=== PATIENT | female | born 1985 | race Caucasian/White ===

== ENCOUNTER 2018-09-08 05:11 | Inpatient (IN) | payer OTHER ==
[2018-09-08] MEDS ORDERED: LR 1,000 ML IV ONE (05:24)
[2018-09-08] MEDS ORDERED: DEXMEDETOMIDINE HCL 400 MCG in NS 100 ML IV SCH (06:00)
[2018-09-08] MEDS ORDERED: ACETAMINOPHEN 500 MG TAB PO ONE (06:07)
[2018-09-08] MEDS ORDERED: ceFAZolin 2 GM/DEXTROSE 100 ML IV ONE (06:07)
[2018-09-08] MEDS ORDERED: GADOBUTROL 10 ML VIAL IVP ONE (06:15)
[2018-09-08] MEDS ORDERED: PROPOFOL 200 MG/20 ML VIAL ONE (06:49)
[2018-09-08] MEDS ORDERED: fentaNYL 100 MCG/2 ML INJ ONE ×3 (06:49→11:22)
[2018-09-08] MEDS ORDERED: PROPOFOL/EMULSION 500 MG/50 ML BOTTLE IV ONE ×7 (06:49→09:54)
[2018-09-08] MEDS ORDERED: ROCURONIUM 50 MG/5 ML VIAL ONE ×3 (06:52→09:51)
[2018-09-08] MEDS ORDERED: DEXAMETHASONE 4 MG/ML VIAL ONE ×3 (06:54)
[2018-09-08] MEDS ORDERED: BACITRACIN ZINC 0.5 OZ OINTTUBE TP ONE (06:56)
[2018-09-08] MEDS ORDERED: EPINEPHrine 30 MG/30 ML MDV (0.1 MG/0.1 ML) ONE (06:57)
[2018-09-08] MEDS ORDERED: LIDO/EPI 2%** Not for Epidural 20 ML MDV ONE (06:57)
[2018-09-08] MEDS ORDERED: METHYLENE BLUE 0.5% 50 MG/10 ML AMP ONE (06:57)
[2018-09-08] MEDS ORDERED: THROMBIN (BOVINE) 5,000 UNIT VIAL TP ONE (06:57)
--- NOTE | 2018-09-08 07:31 | PDHPUP ---
History & Physical Update H&P update statement: This history and physical update is based on an assessment of the patient which was completed after admission or registration (within 24 hours), but prior to the surgery/procedure. H&P update: H&P reviewed & patient examined, no change in patient's condition since H&P completed
[2018-09-08] MEDS ORDERED: MIDAZOLAM 2 MG/2 ML VIAL ONE (07:32)
[2018-09-08] MEDS ORDERED: MIDAZOLAM 2 MG/2 ML VIAL IVP ONE (07:32)
[2018-09-08] MEDS ORDERED: SCOPOLAMINE HYDROBROMIDE 1 MG/3 DAYS PATCH TD ONE ×2 (07:32)
--- NOTE | 2018-09-08 07:42 | PDANEPAE ---
ANE Past Medical History - Cardiovascular History Hx Hypertension: No Hx Arrhythmias: No Hx Chest Pain: No Hx Coronary Artery / Peripheral Vascular Disease: No Hx CHF / Valvular Disease: No Hx Palpitations: No - Pulmonary History Hx COPD: No Hx Asthma/Reactive Airway Disease: No Hx Recent Upper Respiratory Infection: No Hx Oxygen in Use at Home: No Hx Sleep Apnea: No Sleep Apnea Screening Result - Last Documented: Positive Pulmonary History Comment: PRIOR POS FERNIE W/CPAP - RESOLVED W/NASAL SURGERY - Neurologic History Hx Cerebrovascular Accident: No Hx Seizures: No Hx Dementia: No Neurologic History Comment: MIGRAINES - Endocrine History Hx Diabetes: No - Renal History Hx Renal Disorders: Yes Renal History Comment: PAST KIDNEY INF - Liver History Hx Hepatic Disorders: No Hepatic History Comment: MARA - Neurological & Psychiatric Hx Hx Neurological and Psychiatric Disorders: Yes Neurological / Psychiatric History Comment: BIPOLAR. ANXIETY/DEPRESSION - Cancer History Hx Cancer: No - Congenital Disorder History Hx Congenital Disorders: No - GI History Hx Gastrointestinal Disorders: Yes Gastrointestinal History Comment: GERD - Other Health History Other Health History: NEG - Chronic Pain History Chronic Pain: Yes (NECK & SHOULDER, ABD PAIN UPPER R SIDE) - Surgical History Prior Surgeries: CHOLECYSTECTOMY. NASAL SURGERY ANE Review of Systems Review of Systems: - Exercise capacity METS (RN): 4 METS ANE Patient History - Allergies Allergies/Adverse Reactions: No Known Allergies Allergy (Unverified 09/02/18 17:04) - Home Medications Home Medications: Cholecalciferol Vit D3 [Vitamin D3 (*)] 1,000 units PO DAILY 09/02/18 [Last Taken 09/03/18] [place] Carbonate [[place] Carbonate Cap 300 mg (*)] 900 mg PO HS 09/02/18 [ Last Taken 09/07/18] Pantoprazole Sodium [Protonix 40mg (*)] 40 mg PO DAILY 09/02/18 [Last Taken 06/16 03:00] Propranolol HCl [Inderal 20mg (*)] 20 mg PO BID 09/02/18 [Last Taken 09/07/18] Propranolol HCl [Inderal 20mg (*)] 20 mg PO DAILY PRN 09/02/18 [Last Taken 09/07] Ranitidine HCl 300 mg PO HS 09/02/18 [Last Taken 09/07/18] buPROPion XL [Wellbutrin Xl] 450 mg PO DAILY 09/02/18 [Last Taken 09/07/18] lamoTRIgine [Lamictal] 200 mg PO BID 09/02/18 [Last Taken 09/07/18] - NPO status NPO Since - Liquids (Date): 09/08/18 NPO Since - Liquids (Time): 03:00 NPO Since - Solids (Date): 09/07/18 NPO Since - Solids (Time): 19:00 - Anes Hx Anes Hx: post operative nausea and vomiting - Smoking Hx Smoking Status: Former smoker - Family Anes Hx Family Hx Anesthesia Complications: NEG ANE Labs/Vital Signs - Vital Signs Blood Pressure: 117/70 Heart Rate: 75 Respiratory Rate: 16 O2 Sat (%): 94 Height: 167.64 cm Weight: 107.048 kg ANE Physical Exam - Airway Neck exam: FROM Mallampati Score: Class 3 Mouth exam: normal dental/mouth exam - Pulmonary Pulmonary: clear to auscultation - Cardiovascular Cardiovascular: regular rate and rhythym - ASA Status ASA Status: III ANE Anesthesia Plan Anesthesia Plan: general endotracheal anesthesia Lines/Monitors: arterial line Total IV Anesthesia: Yes
[2018-09-08] MEDS ORDERED: REMIFENTANIL HCL 1 MG VIAL ONE (07:43)
[2018-09-08] MEDS ORDERED: PETROLAT,WHT/MIN OIL/SOD CHL 3.5 GM OPHT.OINT ONE (08:33)
[2018-09-08] MEDS ORDERED: GLYCOPYRROLATE 0.2 MG/1 ML VIAL ONE ×4 (08:39→10:30)
[2018-09-08] MEDS ORDERED: LACTULOSE 20 GM/30 ML UDCUP PO PRN (09:00)
[2018-09-08] MEDS ORDERED: niCARdipine/NACL 200 ML IV PRN (09:00)
[2018-09-08] MEDS ORDERED: MAGNESIUM HYDROXIDE 30 ML UDCUP PO PRN (09:00)
[2018-09-08] MEDS ORDERED: BISACODYL 10 MG SUPP PR PRN (09:00)
[2018-09-08] MEDS ORDERED: ACETAMINOPHEN 325 MG TAB PO PRN (09:00)
[2018-09-08] MEDS ORDERED: FAMOTIDINE 20 MG TAB PO SCH (09:00)
[2018-09-08] MEDS ORDERED: POLYETHYLENE GLYCOL 3350 17 GM PKT PO PRN (09:00)
[2018-09-08] MEDS ORDERED: PROPRANOLOL HCL 20 MG TAB PO PRN (09:12)
--- NOTE | 2018-09-08 09:51 | PDMN ---
Medical Necessity Medical necessity: [facility] [place]: S640 hypophysectomy, nasal approach 1-2 days: INPT only list OP: craniotomy- transphenoidal w/ stealth for pituitary mass AUTH# [id number] APPROVED FOR CPT CODES 70475 AND 68520 TO BE DONE INPATIENT.
[2018-09-08] MEDS ORDERED: ONDANSETRON 4 MG/2 ML VIAL ONE (10:18)
[2018-09-08] MEDS ORDERED: HYDROCORTISONE 100 MG/2 ML VIAL ONE (10:26)
[2018-09-08] MEDS ORDERED: NEOSTIGMINE METHYLSULFATE 5 MG/5 ML SYR ONE (10:31)
[2018-09-08] MEDS ORDERED: PROMETHAZINE HCL 25 MG/ML INJ IVP PRN (10:32)
[2018-09-08] MEDS ORDERED: LABETALOL HCL 5 MG/ML 20 ML MDV IVP PRN (10:32)
[2018-09-08] MEDS ORDERED: LR 500 ML IV PRN (10:32)
[2018-09-08] MEDS ORDERED: ALBUTEROL 3 ML DEYVIAL IH PRN (10:32)
[2018-09-08] MEDS ORDERED: DIAZEPAM 5 MG/ML 1 ML SYR IVP PRN (10:32)
[2018-09-08] MEDS ORDERED: ONDANSETRON 4 MG/2 ML VIAL IVP PRN (10:32)
[2018-09-08] MEDS ORDERED: MEPERIDINE 25 MG/0.5 ML AMP IVP PRN (10:32)
[2018-09-08] MEDS ORDERED: METOCLOPRAMIDE 10 MG/2 ML VIAL IVP PRN (10:32)
[2018-09-08] MEDS ORDERED: HYDROmorphONE/DILAUDID 2 MG/ML INJ IVP PRN (10:32)
[2018-09-08] MEDS ORDERED: fentaNYL 100 MCG/2 ML INJ IVP PRN (10:32)
[2018-09-08] MEDS ORDERED: NALOXONE HCL 0.4 MG/ML INJ IVP PRN (10:32)
--- NOTE | 2018-09-08 10:54 | POSTOPPROG ---
Post Op Note Date of Operation: 09/08/18 Surgeon: Km Ortez Retail Advisor: Dr. Garcia- ENT Anesthesia: GET(General Endotracheal) Pre-op Diagnosis: Pituitary Mass Post-op Diagnosis: same Procedure: transphenoidal resection of pituitary mass, placement of nasal splint Inf/Abcess present in the surg proc area at time of surgery?: No Depth: Organ Space Complications: None observed SOAP Progress Note Assessment/Plan: Assessment: Plan: 09/08/18 10:54 S: Patient in PACU. Stable. Expected fullness and discomfort in nares. O: NAD, VSS Still groggy from anesthesia, waking up PERRL, EOMI CN II-XII grossly intact Nasal packing in place, no obvious drainage ALCALA X4 to command A: 33 yo female sp transphenoidal resection of pituitary mass P: -Admit to ICU -Neuro Checks -Postop Head CT in am -Close I/O monitoring- if UO >400 in 2 hours or >250 per hour RN to order Urine Spec Grav, and serum Na stat and call PA-C when they get the results -Encourage po intake- NO STRAW! -No drinking through a straw or blowing nose -SBP 90-140 -Hydrocortisone taper- will go home on 20mg qd until follow up with endo in 1-2 weeks -Nasal packing to be removed by Dr. Garcia on Saturday -Monitor nares for signs of CSF leak -DVT prophy ok on Saturday -PT/OT Objective: Vital Signs Temp Pulse Resp BP Pulse Ox 37.0 C 75 16 117/70 94 09/08/18 07:12 09/08/18 07:42 09/08/18 07:42 09/08/18 07:42 09/08/18 07:42
[2018-09-08] MEDS ORDERED: HYDROCORTISONE 10 MG TAB PO SCH (12:00)
--- NOTE | 2018-09-08 12:45 | POSTANESTH ---
Post Anesthetic Evaluation Cardiovascular Status: Normal, Stable Respiratory Status: Normal, Stable Level of Consciousness/Mental Status: Moderately Sleepy Pain Control: Adequate, Prn Tx Ordered Nausea/Vomiting Control: Adequate, Prn Tx Ordered Complications Possibly Related to Anesthesia: None Noted
[2018-09-08] MEDS: NS W/ 20 KCl/L 1,000 ML IV SCH ×2 (12:47→22:17)
[2018-09-08] MEDS: SENNOSIDES/DOCUSATE SODIUM TAB PO SCH ×2 (12:52→21:21)
[2018-09-08] MEDS: KETOROLAC 30 MG/1 ML SDV IVP PRN (13:00)
--- NOTE | 2018-09-08 13:17 | GOP ---
[f rep st] OPERATIVE REPORT DATE OF OPERATION: 09/08/2018 SURGEON: Km Ortez MD NEUROSURGEON: Km Ortez MD. ELECTRO TECH: Ludivina Garcia MD. ANESTHESIA: General endotracheal. PREOPERATIVE DIAGNOSIS: Benign pituitary tumor. POSTOPERATIVE DIAGNOSIS: Benign pituitary tumor. PROCEDURE PERFORMED: 1. Endoscopic transsphenoidal resection of pituitary tumor. 2. Use of stealth stereotactic navigation for volumetric gross total resection of tumor. FINDINGS: Successful tumor resection. SPECIMENS: Pituitary macroadenoma. ESTIMATED BLOOD LOSS: 30 cc. INDICATIONS: The patient is a 33-year-old woman who had some headaches and breast enlargement and pr esented with a pituitary mass. Ultimately, it was found that this was nonfunctional and her visual f ield testing was normal. However, given the size of this macroadenoma, we had recommended surgery. She presents electively today for this procedure. DESCRIPTION OF PROCEDURE: After informed consent was obtained from the patient, the patient was brou ght to the operating room and was placed in a supine position on the operating table. A formal time- out was performed, identifying the patient by name, medical record number, and date of . Preope rative antibiotics were given. The endotracheal tube was placed and general endotracheal anesthesia was smoothly induced. The initial portion of procedure was performed by Dr. Garcia for the approach, and this was dictated under a separate note. In brief, the face was sterilized and some epinephrine-soaked pledgets were placed in the nose. She then endoscopically obtained access through both nares and raised a partial nasoseptal flap on the left side. The sphenoid sinus was entered, and the sphenoid rostrum was drill ed down flat. The intersphenoid septum was removed. We were then able to visualize the bulging of t he left side of the sella which was consistent with the tumor. Our borders were checked using the navigation. We were able to identify the cavernous sinus on both sides. The carotid artery could be seen behind the bone pulsating on both sides in the cavernous sin us. There was a small rent in the bone in this area, and this was expanded using Kerrison punches. A large opening was opened in the sella down to the sellar floor and cephalad to the tuberculum sella . After this bone was removed, the micro Doppler was used to be sure that there was no vascular sign al behind, and the dura was then opened in a cruciate fashion using a sharp knife. This allowed egre ss of a large portion of the whitish pituitary mass, and biopsies were taken for permanent pathology. Then ring curettes and dissectors were used to dissect the tumor free, starting inferiorly and work ing more superiorly. The yellowish tissue of the normal gland was visualized superiorly and toward t he left. We continued dissecting away the tumor out toward both cavernous sinuses, and we continued removing tumor in this fashion. We were able to inspect under high-power magnification the posterior and lateral aspect of the sella, and no further tumor was visualized. The wound was then copiously irrigated using bacitracin irrigation. A small amount of FloSeal was pl aced in the sella to control the bleeding. There was a small CSF leak that was visualized, but it wa s very small and did not persist. At this point, there was no further bleeding. A small piece of Du raGen was then placed as an inlay graft beneath the dura into the sella. This was then covered with a free mucosal graft that was harvested from the right middle turbinate which had been resected. Thi s was covered with DuraSeal, and ultimately, the sphenoid sinus was then packed using Gelfoam. Dr. Magui dutton then replaced the nasoseptal flap which we did not need to use onto the nasal septum, and all the mucosa was returned to its normal position. Dr. Garcia then placed a splint on the left side an d Merocel packs on both sides for postoperative use in the mucosa. At this point, the posterior aspect of the pharynx was evacuated from the small amount of blood clot that was there and the face was washed. The patient was awakened in the operating room where she was then transferred to the PACU in stable condition. There were no operative complications. I was scr ubbed and present for the entirety of the procedure. All sponge and needle counts were correct at th e end of the case. FLUIDS AND URINE OUTPUT: Per the anesthesia record. /[id number]/MODL
[2018-09-08] MEDS ORDERED: HYDROCORTISONE 10 MG TAB PO ONE (21:00)
[2018-09-08] MEDS: PROPRANOLOL HCL 20 MG TAB PO SCH (21:20)
[2018-09-08] MEDS: lamoTRIgine 100 MG TAB PO SCH (21:20)
[2018-09-08] MEDS: FAMOTIDINE 20 MG TAB PO SCH (21:20)
[2018-09-08] MEDS: LITHIUM CARBONATE 300 MG CAP PO SCH (22:50)
[2018-09-09] MEDS ORDERED: DESMOPRESSIN ACETATE 30 MCG in NS 50 ML IV ONE (01:00)
[2018-09-09] MEDS ORDERED: DESMOPRESSIN ACETATE 1 MCG in NS 50 ML IV ONE (01:15)
[2018-09-09] MEDS: OXYCODONE/APAP 5/325 TAB PO PRN ×4 (07:40→23:19)
[2018-09-09] MEDS: KETOROLAC 30 MG/1 ML SDV IVP PRN ×3 (07:42→20:45)
[2018-09-09] MEDS: buPROPion XL 150 MG TAB PO SCH (08:34)
[2018-09-09] MEDS: HYDROCORTISONE 10 MG TAB PO SCH ×2 (08:35→20:46)
[2018-09-09] MEDS: SENNOSIDES/DOCUSATE SODIUM TAB PO SCH ×2 (08:36→20:45)
[2018-09-09] MEDS: PROPRANOLOL HCL 20 MG TAB PO SCH ×2 (08:37→20:42)
[2018-09-09] MEDS: lamoTRIgine 100 MG TAB PO SCH ×2 (08:39→20:42)
[2018-09-09] MEDS: PANTOPRAZOLE SODIUM 40 MG TAB PO SCH (08:39)
--- NOTE | 2018-09-09 09:38 | NEUSURGPN ---
Assessment/Plan: A: 33 yo female sp transphenoidal resection of pituitary mass POD1 P: -Postop Head CT demonstrates post operative findings with no acute hemorrhage -Close I/O monitoring- if UO >400 in 2 hours or >250 per hour RN to order Urine Spec Grav, and serum Na stat and call PAJenniferC when they get the results -Encourage po intake- No drinking through a straw or blowing nose -SBP 90-140 -Hydrocortisone taper- will go home on 20mg qd until follow up with endo in 1-2 weeks -Nasal packing to be removed by Dr. Garcia on Saturday -Monitor nares for signs of CSF leak -DVT prophy ok on Saturday -PT/OT -Continue ICU level of care given need for DDAVP over night. Continue Loco, UOP has improved this morning, will continue to monitor Subjective: Headache improved with Toradol. Mucous like discharge from nose Objective: NAD, PERRL, EOMI CN II-XII grossly intact blood mucosa drainage ALCALA X4 Catheter Insertion Date: 09/08/18 - Physician Patient Seen by : Neelima Neurosurgery Physical Exam - Vitals, I&O, Labs I and O 09/08/18 09/09/18 09/10/18 05:59 05:59 05:59 Intake Total 2981 Output Total 4145 60 Balance -1164 -60 Weight 107.048 kg Intake: Oral (ml) 550 IV Intake (ml) 1100 IV Infused (ml) 1331 NS W/ 20 KCl/L 1,000 ml @ 1281 100 mls/hr IV CONT LEILA Rx#:[id number] ceFAZolin 1 GM/DEXTROSE 50 50 ml @ 200 mls/hr IV Q8HRS LEILA Rx#:[id number] Output: Urine (ml) 4115 60 Catheter 4115 60 Estimated Blood Loss (ml) 30 Other: Output Comment Catheter notified Vital Signs Temp Pulse Resp BP Pulse Ox 36.6 C 89 20 115/58 L 99 09/08/18 23:55 09/09/18 08:37 09/09/18 08:00 09/09/18 08:37 09/09/18 08:00 Laboratory Results 09/09/18 06:15 ICD10 Worksheet Patient Problems: Problems Problem Status Onset Pituitary adenoma Acute - ICD10 Problem Qualifiers (1) Pituitary adenoma
--- NOTE | 2018-09-09 11:48 | ASMTCMCOM ---
CM Note CM Note Notes: Patient is POD #1 transphenoidal resection of pituitary mass. She will have nasal packing removed tomorrow. She is normally indepdent and lives with her . PT/OT/TELEPHONE INSTRUMENT SUPERVISOR have been ordered. Case Management will follow. Current CM Discharge plan: TBD Date Signed: 09/09/2018 11:48 AM Electronically Signed By:April Farrell RN
[2018-09-09] MEDS: AMOXICILLIN/CLAVULANATE POT 875/125 MG TAB PO SCH (20:45)
[2018-09-09] MEDS: FAMOTIDINE 20 MG TAB PO SCH (20:45)
[2018-09-09] MEDS: LITHIUM CARBONATE 300 MG CAP PO SCH (20:46)
[2018-09-10] MEDS: KETOROLAC 30 MG/1 ML SDV IVP PRN ×3 (05:28→21:57)
--- NOTE | 2018-09-10 07:59 | SOAPPROG ---
SOAP Progress Note Assessment/Plan: Assessment: 33 yo F pod #2 transphenoidal resection of pituitary adenoma Plan: neuro: stable and doing well overall :) watch for central DI, keep oh for now PT/OT scd/terrence/lovenox for dvt prophylaxis nasal packing still in, on augmentin please call with neuro changes discussed with Dr Ortez 09/10/18 07:56 Subjective: + headache, nausea without emesis, no nasal drainage. Objective: Vital Signs Temp Pulse Resp BP Pulse Ox 36.8 C 83 13 120/63 98 09/10/18 04:00 09/10/18 06:00 09/10/18 06:00 09/10/18 06:00 09/10/18 06:00 Laboratory Results 09/10/18 05:20 09/09/18 09/10/18 09/11/18 05:59 05:59 05:59 Intake Total 2981 2450 Output Total 2646 8780 Balance -1164 -630 AAOX4, +FC PERRL, EOMI, no facial droop CRISTINA x 4 + light touch ICD10 Worksheet Patient Problems: Problems Problem Status Onset Pituitary adenoma Acute
[2018-09-10] MEDS: lamoTRIgine 100 MG TAB PO SCH ×2 (08:53→20:29)
[2018-09-10] MEDS: AMOXICILLIN/CLAVULANATE POT 875/125 MG TAB PO SCH ×2 (08:53→20:29)
[2018-09-10] MEDS: HYDROCORTISONE 10 MG TAB PO SCH (08:53)
[2018-09-10] MEDS: buPROPion XL 150 MG TAB PO SCH (08:53)
[2018-09-10] MEDS: PANTOPRAZOLE SODIUM 40 MG TAB PO SCH (08:54)
[2018-09-10] MEDS: PROPRANOLOL HCL 20 MG TAB PO SCH ×2 (08:54→10:41)
[2018-09-10] MEDS: OXYCODONE/APAP 5/325 TAB PO PRN ×3 (08:54→23:54)
[2018-09-10] MEDS: SENNOSIDES/DOCUSATE SODIUM TAB PO SCH ×2 (08:55→20:29)
[2018-09-10] MEDS: ENOXAPARIN 40 MG/0.4 ML SYR SC SCH (08:55)
[2018-09-10] MEDS ORDERED: ONDANSETRON 4 MG/2 ML VIAL IVP PRN (11:56)
[2018-09-10] MEDS ORDERED: SCOPOLAMINE HYDROBROMIDE 1 MG/3 DAYS PATCH TD ONE (12:00)
[2018-09-10] MEDS ORDERED: DESMOPRESSIN ACETATE 1 MCG in NS 50 ML IV ONE (12:00)
--- NOTE | 2018-09-10 12:45 | GOP ---
[f rep st] OPERATIVE REPORT DATE OF OPERATION: 09/08/2018 SURGEON: Ludivina Garcia MD CO-SURGEON: Km Ortez MD. COMPLICATIONS: None. ANESTHESIA: General. PREOPERATIVE DIAGNOSIS: Pituitary mass with extra sellar extension. POSTOPERATIVE DIAGNOSIS: Pituitary mass with extra sellar extension. PROCEDURE PERFORMED: 1. Endoscopic transnasal transsphenoidal resection of pituitary mass. 2. Repair of low-flow cerebrospinal fluid leak. 3. Right middle turbinate excision. 4. Stereotactic volumetric navigation of the paranasal sinuses and extradural skull base utilizing the [email or web address] system. FINDINGS: The patient was found to have overall pretty normal nasal anatomy. The middle turbinate on the right was removed for better access for Dr. Ortez. She did have a small intraoperative low-flow CSF leak from the right. This was patched and was not draining postoperatively. ESTIMATED BLOOD LOSS: Minimal. INDICATIONS: The patient is a very pleasant woman, who has a history of some dizziness, as well as headaches. An MRI was done, which showed a pituitary lesion with some minimal extra sellar extension. She was seen by Endocrinology as well as Neurosurgery, and they both felt that surgery would be indicated. I was asked for assistance with the approach. DESCRIPTION OF PROCEDURE: The patient was first seen in the preoperative area where informed consent was obtained. She was then brought back to the operating room where Anesthesia sedated and intubated her. The bed was turned 180 degrees. She was prepped and draped in a sterile fashion. The stealth- guided head piece was placed, and then she was registered and confirmed to be tracking accurately. Once this was done, a 0-degree scope was used to evaluate the nasal cavity on both sides, and she overall had a fairly midline septum, although she was slightly crowded posteriorly. At this point, the middle turbinate on the left was lateralized, and then an epinephrine-soaked pledget was placed within the sphenoethmoidal recess region and then on the right. The right middle turbinate was removed using a curved turbinate scissor, making an incision in the crotch of the middle turbinate, then moving posteriorly in the coronal plane, and then truncating it inferiorly. This was removed and set aside in case of need for mucosal graft. I then used a 0-degree scope and a [place] to gently fracture some of the posterior ethmoid cells that were anterior to the face of the sphenoid. The microdebrider was used to clean this area up. The inferior one-third of the superior turbinate was removed on this side. An epinephrine-soaked pledget was placed. I then turned my attention to the left side. I removed the inferior one-third of the superior turbinate with a combination of hand instruments, as well as a microdebrider. I was able to see the natural os of the sphenoid, and this was gently opened superiorly and medially. Once this was opened slightly, we had previously discussed raising a nasoseptal flap for possible need. At this point, about 6 mL of 1% lidocaine with 1:200,000 epinephrine was injected into the septum, as well as the face of the sphenoid. Once this had sufficient time to act, electrocautery on a low setting and an elongated Douglas-tip Bovie was used to make an incision superiorly, starting at the superior aspect of the natural os, then coming anteriorly along the septum, and then an inferior back cut was made. At this point, a caudal instrument was used to elevate the flap inferiorly off the face of the sphenoid, as well as off the septum. The inferior incision was not made as this was just the rescue flap technique in case we needed this, so this did protect the pedicle, as well as the septal flap. This was placed inferior to the sphenoid region. Once this was done, I was able to visualize all of the bone from the face of the sphenoid, as well as the septum. A posterior septectomy was performed, and then Chris-Cut instruments, as well as a microdebrider were used to take down the posterior septum until we came to the face of the sphenoid. Up and down-biting Kerrison rongeurs were used to widen the sphenoid laterally, superiorly, and inferiorly until we were able to see the opticocarotid recesses bilaterally. The area of the sella was slightly expanded. She did have an intrasinus septum that curved off slightly to the left. This was taken down using straight Chris-Cuts and direct visualization. Once this was done, we had good visualization of the sella with the ability to access laterally, as well as inferiorly. The mucosa was stripped overlying the sella and the sinus on both sides in preparation for repair. At this point, Dr. Ortez came in to perform his portion of the procedure. At this point, I moved to the patient's left side and held the scope while Dr. Ortez worked with both hands through the right side of the nose. He performed the pituitary tumor removal, and then, once this was clean, we did notice a small low-flow CSF leak on the right superior aspect of the sella. Some Floseal was placed within this area, and then a micro yontaan was placed over this as well. After a few minutes, this was removed. The Floseal was suctioned clear, and a small amount of DuraGen was used to place an underlay graft. There was no significant leaking after this. All instruments were removed. At this point, I took a free mucosal graft from the middle turbinate that I had previously removed. This was cut to size and then marked, making sure that the mucosal side was facing out. This was then placed as an overlay graft over the DuraGen and the sella. Once this had been put into place, DuraSeal was placed to overlie both of these areas. Then, some thrombin-soaked Gelfoam was placed anterior to this and into the sphenoid sinus on both sides. At this point, I moved back over to the right side, and, since we did not need the nasoseptal flap, this was repositioned against the septum on the left. The nasal cavity and nasopharynx were suctioned out clearly until it was clear. There was no significant active bleeding. The middle turbinate stump was cauterized using endoscopic bipolar. At this point, a Contreras splint that had been cut to size was placed on the left side overlying the area of the previous nasoseptal flap to allow this to heal, and then a 3-0 Prolene was used to suture this through and through the anterior part of the septum. Then, 2 Merocel packs that were cut to size and then placed in a gloved finger were placed on either side under direct visualization to where they sat just anterior to the Gelfoam-packed sphenoid, and then these were inflated with saline. Once this was done, the patient was turned back over to Anesthesia where she was awoken, extubated, and taken to the PACU in stable condition. There were no complications. She tolerated the procedure well. All pledget and instrument counts were correct at the end of the procedure. /[id number]/MODL MTDD
--- NOTE | 2018-09-10 12:51 | SOAPPROG ---
SOAP Progress Note Assessment/Plan: Assessment: POD2 TSS approach to the pituitary. Doing well, feels better today. Staying inpatient in ICU for U/O monitoring, got DDAVP. Will keep packs in place. She c/o some mild dripping which I think is likely the saline from the packs though will keep packs in place until d/c or potentially Saturday if d/c over the weekend. Continue AUgmentin while packs in place. Continue CSF leak precautions Plan: 09/10/18 12:49 Subjective: Doing better, feels alittle dripping from front and back at times. More salty taste, denies metallic taste Objective: AFVSS sitting up in chair RA Packs in place B NC no bleeding Vital Signs Temp Pulse Resp BP Pulse Ox 36.3 C 74 17 114/65 94 09/10/18 08:00 09/10/18 12:00 09/10/18 12:00 09/10/18 12:00 09/10/18 12:00 Laboratory Results 09/10/18 10:35 09/09/18 09/10/18 09/11/18 05:59 05:59 05:59 Intake Total 298 2450 Output Total 1598 [address] [facility] -1164 -630 -625 ICD10 Worksheet Patient Problems: Problems Problem Status Onset Pituitary adenoma Acute
--- NOTE | 2018-09-10 13:18 | ASMTCMCOM ---
CM Note CM Note Notes: PT/OT are recommending home no needs. Patient to d/c independent. CM available if d/c needs arise. Date Signed: 09/10/2018 01:18 PM Electronically Signed By:Radha Lemus LCSW
[2018-09-10] MEDS: FAMOTIDINE 20 MG TAB PO SCH (20:29)
[2018-09-10] MEDS: LITHIUM CARBONATE 300 MG CAP PO SCH (20:30)
[2018-09-11] MEDS: KETOROLAC 30 MG/1 ML SDV IVP PRN ×4 (04:07→23:04)
[2018-09-11] MEDS: AMOXICILLIN/CLAVULANATE POT 875/125 MG TAB PO SCH ×2 (08:59→19:31)
[2018-09-11] MEDS: SENNOSIDES/DOCUSATE SODIUM TAB PO SCH ×2 (08:59→19:34)
[2018-09-11] MEDS: buPROPion XL 150 MG TAB PO SCH (09:00)
[2018-09-11] MEDS: lamoTRIgine 100 MG TAB PO SCH ×2 (09:00→19:31)
[2018-09-11] MEDS: PROPRANOLOL HCL 20 MG TAB PO SCH ×2 (09:00→19:33)
[2018-09-11] MEDS: HYDROCORTISONE 10 MG TAB PO SCH (09:00)
[2018-09-11] MEDS: PANTOPRAZOLE SODIUM 40 MG TAB PO SCH (09:00)
[2018-09-11] MEDS: ENOXAPARIN 40 MG/0.4 ML SYR SC SCH (09:01)
--- NOTE | 2018-09-11 09:09 | NEUSURGPN ---
Assessment/Plan: A: 33 yo female sp transphenoidal resection of pituitary mass POD3 P: -Postop Head CT demonstrates post operative findings with no acute hemorrhage -Close I/O monitoring- if UO >400 in 2 hours or >250 per hour RN to order Urine Spec Grav, and serum Na stat and call PA-C when they get the results -Encourage po intake- No drinking through a straw or blowing nose -SBP 90-140 -Hydrocortisone taper- will go home on 20mg qd until follow up with endo in 1-2 weeks -Nasal packing per Dr. Garcia, she wll keep in place until D/C. Patient is on Augmentin -Monitor nares for signs of CSF leak -DVT prophy ok -PT/OT - Continue Loco, UOP has improved this morning, will continue to monitor. most recent NA 139 with UOP 500cc over the last 2 hours -Discussed with Dr. Ortez Subjective: Mild drainage from nose/in back of throat. Denies any visual issues, mild headache Objective: PERRL, EOMI CN II-XII grossly intact blood mucosa drainage ALCALA X4 Catheter Insertion Date: 09/08/18 - Physician Discussed Patient with : Neelima Neurosurgery Physical Exam - Vitals, I&O, Labs I and O 09/10/18 09/11/18 09/12/18 05:59 05:59 05:59 Intake Total 2450 2501 Output Total 3080 2665 50 Balance -630 -164 -50 Intake: Oral (ml) 2450 2450 IV Intake (ml) 51 Output: Urine (ml) 3080 2665 50 Catheter 3080 2665 50 Other: Number of Voids Incontinence 1 Vital Signs Temp Pulse Resp BP Pulse Ox 37 C 62 12 112/65 96 09/11/18 08:00 09/11/18 09:00 09/11/18 08:00 09/11/18 09:00 09/11/18 08:00 Laboratory Results 09/11/18 08:25 ICD10 Worksheet Patient Problems: Problems Problem Status Onset Pituitary adenoma Acute - ICD10 Problem Qualifiers (1) Pituitary adenoma
[2018-09-11] MEDS: OXYCODONE/APAP 5/325 TAB PO PRN ×2 (14:16→19:29)
[2018-09-11] MEDS: FAMOTIDINE 20 MG TAB PO SCH (19:32)
[2018-09-11] MEDS: LITHIUM CARBONATE 300 MG CAP PO SCH (19:34)
[2018-09-12] MEDS: OXYCODONE/APAP 5/325 TAB PO PRN ×2 (00:24→11:55)
[2018-09-12] MEDS: ENOXAPARIN 40 MG/0.4 ML SYR SC SCH (08:02)
[2018-09-12] MEDS: KETOROLAC 30 MG/1 ML SDV IVP PRN (08:02)
[2018-09-12] MEDS: PROPRANOLOL HCL 20 MG TAB PO SCH (08:03)
[2018-09-12] MEDS: buPROPion XL 150 MG TAB PO SCH (08:03)
[2018-09-12] MEDS: lamoTRIgine 100 MG TAB PO SCH (08:03)
[2018-09-12] MEDS: HYDROCORTISONE 10 MG TAB PO SCH (08:03)
[2018-09-12] MEDS: PANTOPRAZOLE SODIUM 40 MG TAB PO SCH (08:03)
[2018-09-12] MEDS: AMOXICILLIN/CLAVULANATE POT 875/125 MG TAB PO SCH (08:03)
--- NOTE | 2018-09-12 09:07 | NEUSURGPN ---
Assessment/Plan: A: 33 yo female sp transphenoidal resection of pituitary mass POD4 P: -Postop Head CT demonstrates post operative findings with no acute hemorrhage -Close I/O monitoring-will d/c Loco this morning. Patient will be discharged with PO DDAVP -Encourage po intake- No drinking through a straw or blowing nose -SBP 90-140 -Hydrocortisone taper- will go home on 20mg qd until follow up with endo in 1-2 weeks -Nasal packing per Dr. Garcia, she wll keep in place until D/C. Patient is on Augmentin, -Monitor nares for signs of CSF leak -DVT prophy ok -PT/OT - d/c Loco. Will see how patent does today with urinating. If stable can d/c home -Seen by Dr. Ortez Subjective: Frontal headache. response to Toradol/Percocet Objective: PERRL, EOMI CN II-XII grossly intact blood mucosa drainage ALCALA X4 Catheter Insertion Date: 09/08/18 - Physician Patient Seen by : [facility] Physical Exam - Vitals, I&O, Labs I and O 09/11/18 09/12/18 09/13/18 05:59 05:59 05:59 Intake Total 2501 3200 Output Total 2665 3560 Balance -164 -360 Intake: Oral (ml) 2450 3200 IV Intake (ml) 51 Output: Urine (ml) 2665 3560 Catheter 2665 3560 Other: Number of Voids Incontinence 1 Vital Signs Temp Pulse Resp BP Pulse Ox 37 C 77 17 117/76 95 09/12/18 07:48 09/12/18 07:48 09/12/18 07:48 09/12/18 07:48 09/12/18 07:48 Laboratory Results 09/12/18 00:20 ICD10 Worksheet Patient Problems: Problems Problem Status Onset Pituitary adenoma Acute - ICD10 Problem Qualifiers (1) Pituitary adenoma
[2018-09-12] MEDS: SENNOSIDES/DOCUSATE SODIUM TAB PO SCH (10:03)
[2018-09-12 12:51] VITALS: BP 108/82
--- NOTE | 2018-09-12 13:56 | ASMTDCNOTE ---
Case Management Discharge Discharge Order Complete? Answers: Yes Patient to Obtain Answers: Independently Medications Transportation Arranged Answers: Family/Friends Family Notified Answers: Yes Notes: , Nadir Discharge Comments Notes: Patient to discharge home today independently.No further needs. Date Signed: 09/12/2018 01:56 PM Electronically Signed By:Radha Lemus LCSW
--- NOTE | 2018-09-12 13:57 | ASMTLACE ---
LACE Length of stay for Answers: 4-6 days current admission Acuity / Level of Answers: Yes Care: Did the patient have an inpatient admission? Comorbidities - select Answers: Opioid dependence all that apply / Chronic pain Other Notes: GERD # of Emergency department Answers: 0 visits in the last 6 months Social determinants Answers: Mental health diagnosis (anxiety, depression, pers onality disorders, etc.) Score: 15 Date Signed: 09/12/2018 01:57 PM Electronically Signed By:Radha Lemus LCSW
== END 2018-09-12 14:10 | disposition home or self-care (01) | DRG 614 ==
LOC: F3N 05:11 → F2N 10:30
PROVIDERS: ADMIT Neurological Surgery; ATTEND Neurological Surgery
DX: D35.2 Benign neoplasm of pituitary gland (principal); G96.0 Cerebrospinal fluid leak; G43.909 Migraine, unspecified, not intractable, without status migrainosus; F31.9 Bipolar disorder, unspecified; F41.8 Other specified anxiety disorders
CPT/HCPCS: 88323-90; 88342; 92610-GN; 97116-GP; 97161-GP; 97165-GO; 97530-GO; 97535-GO; A9585; J0171; J0690; J1100; J1650; J1720; J1885; J2250; J2270; J2405; J2597; J2704; J2710; J3010; Q9968